=== PATIENT | female | born 1985 | race Caucasian/White ===

== ENCOUNTER 2016-09-02 15:47 | Emergency (ER) | payer OTHER ==
[2016-09-02 16:51] LABS: BILIRUBIN,URINE NEGATIVE (NEGATIVE); PH,URINE 6.5 PH (5.0-7.5)
[2016-09-02 16:55] LABS: UA w/ MICROSCOPIC CHARGE YES
[2016-09-02 16:56] LABS: HCG UR QUAL NEGATIVE
[2016-09-02 17:02] LABS: UR CULTURE IF IND NOT INDICATED; WBC,URINE 0-3 /HPF (0-5)
--- NOTE | 2016-09-02 18:56 | ED Physician Documentation ---
PD HPI FEMALE - Stated complaint Stated Complaint: FEMALE - Chief complaint Chief Complaint: Abd Pain - History obtained from History obtained from: Patient - History of Present Illness Timing - onset: Yesterday Timing - duration: Days (2) Timing - details: Abrupt onset, Still present Associated symptoms: Pelvic pain (cramping lower abd/pelvic pain both sides/ middle.), Vaginal pain. 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 denies: Frequency, Discharge, Irregular menses Skin: denies: Rash, Lesions Musculoskeletal: denies: Back pain PD PAST MEDICAL HISTORY - Present Medications Home Medications: Ambulatory Orders Medication Instructions Recorded Confirmed HYDROcod/ACETAM 5/325 [[place] 5/325] 1 tab PO Q6H PRN #15 tablet 09/02/16 Metronidazole [Flagyl] 500 mg PO BID #14 tablet 09/02/16 - Allergies Allergies/Adverse Reactions: Allergies Allergy/AdvReac Type Severity Reaction Status Date / Time No Known Drug Allergies Allergy Verified 09/02/16 15:56 PD ED PE NORMAL - Vitals Vital signs reviewed: Yes - General General: Alert and oriented X 3, No acute distress, Well developed/nourished - Cardiac Cardiac: RRR, No murmur - Respiratory Respiratory: Clear bilaterally - Abdomen Abdomen: Soft, Non tender - Female Female : Separator Tender present, Other (external normal. Vaginal vault with watery , mucous discharge with associated cervicitis and tenderness. ) - Rectal Rectal: Deferred - Back Back: No CVA TTP - Derm Derm: Normal color, Warm and dry, No rash - Extremities Extremities: No tenderness to palpate, Normal ROM s pain Results - Vitals Vitals: Vital Signs - 24 hr 09/02/16 09/02/16 09/02/16 15:53 19:35 19:37 Temperature 36.4 C L 36.5 C 36.2 C L Heart Rate 71 71 75 Respiratory 14 14 16 Rate Blood Pressure 128/87 H 128/87 H 119/69 O2 Saturation 100 100 99 09/02/16 19:56 Temperature Heart Rate 74 Respiratory 72 H Rate Blood Pressure 134/64 H O2 Saturation 99 Oxygen O2 Source Room air - Labs Labs: Microbiology 09/02/16 19:45 Wet Prep - Final Vaginal Laboratory Tests 09/02/16 16:45 Urine Color YELLOW Urine Clarity HAZY Urine pH 6.5 Ur Specific [place] <=1.005 Urine Protein NEGATIVE Urine Glucose (UA) NEGATIVE Urine Ketones NEGATIVE Urine Occult Blood LARGE H Urine Nitrite NEGATIVE Urine Bilirubin NEGATIVE Urine Urobilinogen 0.2 (NORMAL) Ur Leukocyte Esterase NEGATIVE Urine RBC 6-10 H Urine WBC 0-3 Ur Squamous Epith Cells NONE SEEN Urine Bacteria None Seen Ur Microscopic Review INDICATED Urine Culture Comments NOT INDICATED Urine HCG, Qual NEGATIVE PD MEDICAL DECISION MAKING - ED course Complexity details: considered differential (exam is very consistent with BV. I did not feel U/S was needed. ), d/w patient Departure - Departure Disposition: 01 Home, Self Care Clinical Impression: Bacterial vaginitis, Pelvic pain Condition: Stable Record reviewed to determine appropriate education?: Yes Instructions: ED Vaginosis Bacterial Follow-Up: David Lion MD [Primary Care Provider] - Prescriptions: Metronidazole [Flagyl] 500 mg PO BID #14 tablet HYDROcod/ACETAM 5/325 [[place] 5/325] 1 tab PO Q6H PRN #15 tablet PRN Reason: Pain Comments: Ibuprofen or Naproxen twice daily for a week. Metronidazole twice daily for a week for what appears to be bacterial vaginitis. Add hydrocodone as needed for pains. Recheck if not improved over the next few days. The cultures will result in 3 days and we will call if antibiotics need changing. Discharge Date/Time: 09/02/16 19:56
[2016-09-02] MEDS ORDERED: metroNIDAZOLE 250 MG TABLET PO STA (19:47)
[2016-09-02] MEDS ORDERED: IBUPROFEN 600 MG TABLET PO STA (19:47)
[2016-09-02] MEDS ORDERED: metroNIDAZOLE 250 MG TABLET PO ONE (19:49)
[2016-09-02] MEDS ORDERED: IBUPROFEN 600 MG TABLET PO ONE (19:49)
[2016-09-02 19:56] VITALS: BP 134/64
== END 2016-09-02 19:56 | disposition home or self-care (01) ==
LOC: ED 15:47
DX: N76.0 Acute vaginitis (principal); B96.89 Other specified bacterial agents as the cause of diseases classified elsewhere; R10.2 Pelvic and perineal pain
CPT/HCPCS: 81001; 81025; 87210; 87491; 87591; 99283; A9270; 81003; 87086